=== PATIENT | female | born 1970 | race Two or more races ===

== ENCOUNTER 2016-06-09 21:53 | Emergency (ER) | payer OTHER ==
[~2016-06-09] VITALS: Ht 167.6 cm; Wt 65.8 kg
[2016-06-09 22:30] LABS: Urine Bilirubin Negative (Negative); Urine Blood Negative /uL (Negative); Urine Color Yellow (Yellow); Urine Glucose Normal (Normal); Urine Ketone Negative (Negative); Urine Mucus FEW (None Seen); Urine Nitrite Negative (Negative); Urine RBC <1 /hpf (0 - 4); Urine Squamous Epithelial Cell FEW /hpf (<5); Urine Urobilinogen Normal (Negative); Urine pH 5.5 (5.0-8.0)
[2016-06-10 03:13] LABS: Hepatitis B Surface Antibody Negative
[2016-06-10] MEDS ORDERED: TETANUS-DIPTH-ACEL PERTUSSIS 0.5ML SYRG IM ONE (05:15)
[2016-06-10 05:25] VITALS: BP 95/63
== END 2016-06-10 06:14 | disposition home or self-care (01) ==
LOC: ER 21:58
DX: S61.032A Puncture wound without foreign body of left thumb without damage to nail, initial encounter (principal); W46.0XXA Contact with hypodermic needle, initial encounter; Y93.89 Activity, other specified; Y99.0 Civilian activity done for income or pay; Y92.89 Other specified places as the place of occurrence of the external cause
CPT/HCPCS: 36415; 73140; 81001; 81025; 86703; 86706; 86803; 87340; 90471; 90715